=== PATIENT | male | born 1985 | race Two or more races ===

== ENCOUNTER 2019-11-21 10:01 | Outpatient (CLI) | payer OTHER | END 2019-11-21 11:21 | disposition home or self-care (01) | LOC: SONOGRAMA 10:01 | DX: R10.84 Generalized abdominal pain (principal) ==

== ENCOUNTER 2020-08-06 09:35 | Outpatient (CLI) | payer OTHER | END 2020-08-06 09:46 | disposition home or self-care (01) | LOC: RAD 09:35 | PROVIDERS: ATTEND Internal Medicine | DX: R07.89 Other chest pain (principal) ==